=== PATIENT | male | born 1980 | race Caucasian/White ===

== ENCOUNTER 2017-09-06 04:57 | Emergency (ER) | payer MEDICAID ==
[~2017-09-06] VITALS: Ht 170.2 cm; Wt 56.8 kg
[~2017-09-06 04:57] MED LIST: IBUP-1984 PO; NO HOME MEDS
[2017-09-06 04:59] VITALS: BP 121/84
== END 2017-09-06 09:30 | disposition left against medical advice (07) ==
LOC: ER 04:57
DX: M54.9 Dorsalgia, unspecified (principal); Z53.21 Procedure and treatment not carried out due to patient leaving prior to being seen by health care provider

== ENCOUNTER 2017-09-07 22:06 | Emergency (ER) | payer MEDICAID | END 2017-09-07 23:28 | disposition left against medical advice (07) | LOC: ER 22:07 | DX: L08.9 Local infection of the skin and subcutaneous tissue, unspecified (principal); Z53.21 Procedure and treatment not carried out due to patient leaving prior to being seen by health care provider ==

== ENCOUNTER 2020-02-19 05:23 | Emergency (ER) | payer MEDICAID ==
[~2020-02-19] VITALS: Ht 170.2 cm; Wt 93.6 kg
[2020-02-19] MEDS ORDERED: albuterol 2.5 MG/3 ML nebule NEB ONE (05:30)
[2020-02-19] MEDS ORDERED: methylPREDNISolone sod succ 125mg/2ml vial IV ONE (05:30)
[2020-02-19] MEDS ORDERED: ipratropium/albuterol 3ml nebule NEB ONE (05:30)
[2020-02-19] MEDS ORDERED: magnesium 2GM in 50ml NS 50 ML IV ONE (05:30)
[2020-02-19] MEDS ORDERED: PRED20TA PO (05:43)
[2020-02-19] MEDS ORDERED: ALBU8.5H8 IH (05:43)
[2020-02-19 07:12] VITALS: BP 120/73
== END 2020-02-19 07:10 | disposition home or self-care (01) ==
LOC: ER 05:23
DX: J45.901 Unspecified asthma with (acute) exacerbation (principal); F15.90 Other stimulant use, unspecified, uncomplicated; F17.210 Nicotine dependence, cigarettes, uncomplicated; Z60.2 Problems related to living alone; Z59.0 Homelessness; Z56.0 Unemployment, unspecified; Z88.5 Allergy status to narcotic agent; Z79.899 Other long term (current) drug therapy
CPT/HCPCS: 71045; 94640; 96365; 96375; 99284; J2930; J3475; 94760

== ENCOUNTER 2020-03-09 08:21 | Emergency (ER) | payer MEDICAID ==
[~2020-03-09] VITALS: Ht 170.2 cm; Wt 93.6 kg
[~2020-03-09 08:21] MED LIST changes: +ALBU8.5H8 IH; +PRED20TA PO
[2020-03-09 09:30] VITALS: BP 127/93
== END 2020-03-09 09:32 | disposition home or self-care (01) ==
LOC: ER 08:22
DX: R06.02 Shortness of breath (principal); R19.7 Diarrhea, unspecified; Z20.828 Contact with and (suspected) exposure to other viral communicable diseases; J45.909 Unspecified asthma, uncomplicated; F17.200 Nicotine dependence, unspecified, uncomplicated; F15.90 Other stimulant use, unspecified, uncomplicated; Z60.2 Problems related to living alone; Z59.0 Homelessness; Z56.0 Unemployment, unspecified; Z88.5 Allergy status to narcotic agent; Z79.899 Other long term (current) drug therapy
CPT/HCPCS: 36415; 87635; 99283

== ENCOUNTER 2020-06-22 16:16 | Emergency (ER) | payer MEDICAID ==
[~2020-06-22] VITALS: Ht 170.2 cm; Wt 86.0 kg
[~2020-06-22 16:16] MED LIST changes: -PRED20TA PO
[2020-06-22 16:52] VITALS: BP 114/86
== END 2020-06-22 16:50 | disposition home or self-care (01) ==
LOC: ER 16:16
DX: S61.211A Laceration without foreign body of left index finger without damage to nail, initial encounter (principal); J45.909 Unspecified asthma, uncomplicated; F15.90 Other stimulant use, unspecified, uncomplicated; Z60.2 Problems related to living alone; Z59.0 Homelessness; Z56.0 Unemployment, unspecified; Z88.5 Allergy status to narcotic agent; Z79.899 Other long term (current) drug therapy; W26.0XXA Contact with knife, initial encounter; Y93.89 Activity, other specified; Y92.89 Other specified places as the place of occurrence of the external cause; Y99.8 Other external cause status
CPT/HCPCS: 99281; 99282

== ENCOUNTER 2020-07-22 09:25 | Emergency (ER) | payer MEDICAID ==
[~2020-07-22] VITALS: Ht 175.3 cm; Wt 75.0 kg
[2020-07-22 09:32] VITALS: BP 131/78
== END 2020-07-22 10:43 | disposition home or self-care (01) ==
LOC: ER 09:25
DX: R05 Cough (principal); Z20.828 Contact with and (suspected) exposure to other viral communicable diseases; R09.81 Nasal congestion; J45.909 Unspecified asthma, uncomplicated; G89.29 Other chronic pain; F15.90 Other stimulant use, unspecified, uncomplicated; Z56.0 Unemployment, unspecified; Z59.0 Homelessness; Z60.9 Problem related to social environment, unspecified; Z88.6 Allergy status to analgesic agent; Z79.899 Other long term (current) drug therapy
CPT/HCPCS: 36415; 87635; 99283

== ENCOUNTER 2020-09-24 19:11 | Emergency (ER) | payer MEDICAID ==
[~2020-09-24] VITALS: Ht 170.2 cm; Wt 86.3 kg
[2020-09-24 19:19] VITALS: BP 128/88
[2020-09-24] MEDS ORDERED: ketorolac trometh inj. 60 MG/2 ML VIAL IM ONE (21:20)
[2020-09-24] MEDS ORDERED: CYCL-1 PO (21:21)
== END 2020-09-24 21:43 | disposition home or self-care (01) ==
LOC: ER 19:11
DX: S39.012A Strain of muscle, fascia and tendon of lower back, initial encounter (principal); M54.17 Radiculopathy, lumbosacral region; J45.909 Unspecified asthma, uncomplicated; G89.29 Other chronic pain; F17.210 Nicotine dependence, cigarettes, uncomplicated; F15.90 Other stimulant use, unspecified, uncomplicated; Z60.2 Problems related to living alone; Z59.0 Homelessness; Z56.0 Unemployment, unspecified; Z88.5 Allergy status to narcotic agent; Z79.899 Other long term (current) drug therapy; X58.XXXA Exposure to other specified factors, initial encounter; Y93.89 Activity, other specified; Y92.89 Other specified places as the place of occurrence of the external cause; Y99.8 Other external cause status
CPT/HCPCS: 96372; 99283; J1885

== ENCOUNTER 2021-06-26 15:24 | Emergency (ER) | payer MEDICAID ==
[~2021-06-26] VITALS: Ht 170.2 cm; Wt 81.8 kg
[~2021-06-26 15:24] MED LIST changes: +ALBU8.5H17 IH; -ALBU8.5H8 IH; +CYCL-1 PO
[2021-06-26 16:21] VITALS: BP 107/72
== END 2021-06-26 20:51 | disposition left against medical advice (07) ==
LOC: ER 15:24
DX: R07.81 Pleurodynia (principal); Z53.21 Procedure and treatment not carried out due to patient leaving prior to being seen by health care provider